=== PATIENT | female | born 1940 | race Caucasian/White ===

== ENCOUNTER 2022-12-16 14:45 | Inpatient (IN) ==
[2022-12-16 17:06] LABS: Hematocrit 26.8 % (35-45); Hemoglobin 8.6 g/dL (11.5-14.3); Mean Corpuscular Hemoglobin 27.3 pg (27-33); Mean Corpuscular Hgb Conc 32.3 g/dL (31-36); Mean Corpuscular Volume 84.5 fL (80-97); Mean Platelet Volume 7.1 fL (7.5-11.2); Platelet Count 470 10^3/uL (150-450); Red Blood Count 3.17 10^6/uL (3.63-4.92); Red Cell Distribution Width 15.9 % (12-17); White Blood Count 13.3 10^3/uL (3.8-11.8)
[2022-12-16 17:12] LABS: INR 1.24 (0.88-1.18)
[2022-12-16 17:22] LABS: Albumin 3.5 g/dL (3.2-5.2); Albumin/Globulin Ratio 1.3 (1-3); C Reactive Protein 92.01 mg/L (<8.01); Calcium 8.7 mg/dL (8.6-10.3); Creatinine, Serum 3.95 mg/dL (0.51-0.95); Globulin 2.7 g/dL (2-4); Magnesium 1.4 mg/dL (1.9-2.7); Phosphorus 4.2 mg/dL (2.5-5.0); Total Bilirubin 0.3 mg/dL (0.2-1.0); Total Protein 6.2 g/dL (6.4-8.9); eGFR CKD-EPI 10.8 (>60)
[2022-12-16 17:40] LABS: ABS Basophils 0.1 10^3/uL (0.0-0.1); ABS Eosinophils 3.3 10^3/uL (0.0-0.5); ABS Lymphocytes 0.8 10^3/uL (1.0-4.8); ABS Monocytes 0.7 10^3/uL (0.0-0.9); ABS Neutrophils 8.4 10^3/uL (1.5-7.6); Eosinophil % 24.6 %; Lymphocyte % 6.2 %
[2022-12-16] MEDS ORDERED: Magnesium Sulf 4 GM/100 ML IV 4,000 MG/100 ML BAG IVPB ONE (17:42)
[2022-12-16] MEDS ORDERED: Bumetanide IV 0.25 MG/ML 4 ml VIAL (1 mg) IV SLOW PU ONE (17:48)
[2022-12-16] MEDS ORDERED: Ondansetron 4 mg VIAL 2 MG/ML 2 ml VIAL IV PRN (18:05)
[2022-12-16 18:38] LABS: High Sensitivity Troponin 1 Hr 8 pg/mL (<15)
[2022-12-16 18:58] LABS: Urine Appearance Cloudy; Urine Bilirubin Negative (Negative); Urine Blood 1+ (Negative); Urine Color Straw; Urine Glucose Negative (Negative); Urine Ketones Negative (Negative); Urine Nitrite Negative (Negative); Urine Protein Negative (Negative); Urine Specific Gravity 1.005 (1.002-1.030); Urine Urobilinogen Negative (Negative)
[2022-12-16] MEDS ORDERED: Heparin DRIP 25,000 UNITS BAG 25,000 UNITS/500 ML BAG IV SCH (19:00)
[2022-12-16 19:11] LABS: Urine Bacteria 1+ (Absent); Urine Red Blood Cell 1+(3-5/hpf) (Absent); Urine Squamous Epithelial Cell Present (Absent); Urine White Blood Cell 3+(>20/hpf) (Absent)
[2022-12-16] MEDS: Heparin 5000 UNITS/ML 1 mL VIAL IV SCH (20:31)
[2022-12-16 21:24] LABS: Creatinine, Serum 3.99 mg/dL (0.51-0.95); eGFR CKD-EPI 10.7 (>60)
[2022-12-16 21:44] LABS: Urine Creatinine Concentration 45.66 mg/dL (20.00-320.00)
[2022-12-17 01:38] LABS: % Iron Saturation 6 % (15-55); .Transferrin 228 mg/dL (203-362); Iron < 20 ug/dL (50-212); Total Iron Binding Capacity 319 mcg/dL (250-450); Unsaturated Iron Binding 299 ug/dL
[2022-12-17 02:46] LABS: Ferritin 41.5 ng/mL (11-307)
[2022-12-17 05:11] LABS: Hematocrit 25.6 % (35-45); Hemoglobin 8.5 g/dL (11.5-14.3); Mean Corpuscular Hemoglobin 27.5 pg (27-33); Mean Corpuscular Hgb Conc 33.1 g/dL (31-36); Mean Corpuscular Volume 83.1 fL (80-97); Mean Platelet Volume 6.9 fL (7.5-11.2); Platelet Count 469 10^3/uL (150-450); Red Blood Count 3.09 10^6/uL (3.63-4.92); Red Cell Distribution Width 15.7 % (12-17); White Blood Count 12.1 10^3/uL (3.8-11.8)
[2022-12-17 05:12] LABS: ABS Basophils 0.1 10^3/uL (0.0-0.1); ABS Eosinophils 3.4 10^3/uL (0.0-0.5); ABS Lymphocytes 0.7 10^3/uL (1.0-4.8); ABS Monocytes 0.5 10^3/uL (0.0-0.9); ABS Neutrophils 7.4 10^3/uL (1.5-7.6); Eosinophil % 28.5 %; Lymphocyte % 5.5 %
[2022-12-17 05:26] LABS: Calcium 8.4 mg/dL (8.6-10.3); Creatinine, Serum 4.06 mg/dL (0.51-0.95); Magnesium 2.6 mg/dL (1.9-2.7); eGFR CKD-EPI 10.5 (>60)
[2022-12-17] MEDS: Heparin 5000 UNITS/ML 1 mL VIAL IV SCH (05:39)
[2022-12-17] MEDS ORDERED: Albuterol HFA INHALER 8 gm MDI INH ONE (06:12)
[2022-12-17] MEDS: CALCIUM CARBONATE VITAMIN D3 PO SCH (08:31)
[2022-12-17] MEDS: NF: Pancrelipase 24,000 units (NF) PO SCH ×3 (08:31→18:42)
[2022-12-17] MEDS: Potassium Chlor 20 meq TAB.ER PO SCH (08:32)
[2022-12-17] MEDS ORDERED: Bumetanide IV 0.25 MG/ML 4 ml VIAL (1 mg) IV SLOW PU ONE (08:51)
[2022-12-17] MEDS: Albuterol HFA INHALER 8 gm MDI INH PRN (13:20)
[2022-12-18] MEDS: Albuterol HFA INHALER 8 gm MDI INH PRN (06:17)
[2022-12-18 06:43] LABS: Hematocrit 25.4 % (35-45); Hemoglobin 8.3 g/dL (11.5-14.3); Mean Corpuscular Hemoglobin 27.4 pg (27-33); Mean Corpuscular Hgb Conc 32.8 g/dL (31-36); Mean Corpuscular Volume 83.5 fL (80-97); Mean Platelet Volume 7.1 fL (7.5-11.2); Platelet Count 470 10^3/uL (150-450); Red Blood Count 3.04 10^6/uL (3.63-4.92); Red Cell Distribution Width 15.7 % (12-17); White Blood Count 11.1 10^3/uL (3.8-11.8)
[2022-12-18 07:03] LABS: Calcium 8.3 mg/dL (8.6-10.3); Creatinine, Serum 4.1 mg/dL (0.51-0.95); Magnesium 2.3 mg/dL (1.9-2.7); Potassium 3.8 mmol/L (3.5-5.0); eGFR CKD-EPI 10.3 (>60)
[2022-12-18 07:04] LABS: ABS Basophils 0.1 10^3/uL (0.0-0.1); ABS Eosinophils 3.9 10^3/uL (0.0-0.5); ABS Lymphocytes 1.3 10^3/uL (1.0-4.8); ABS Monocytes 0.9 10^3/uL (0.0-0.9); ABS Neutrophils 4.9 10^3/uL (1.5-7.6); Eosinophil % 35.3 %; Lymphocyte % 11.6 %
[2022-12-18] MEDS: Bumetanide IV 0.25 MG/ML 4 ml VIAL (1 mg) IV SLOW PU SCH (09:45)
[2022-12-18] MEDS: Potassium Chlor 20 meq TAB.ER PO SCH (09:45)
[2022-12-18] MEDS: NF: Pancrelipase 24,000 units (NF) PO SCH (09:54)
[2022-12-18] MEDS: CALCIUM CARBONATE VITAMIN D3 PO SCH (09:54)
[2022-12-18] MEDS ORDERED: Pancrelipase 24,000 units (NF) PO SCH (11:00)
[2022-12-18] MEDS: Pancrelipase 5,000 units CAP PO SCH ×2 (11:40→16:40)
[2022-12-18 16:54] LABS: Kappa Free Light Chain 7.4 mg/dL; Lambda Free Light Chain, S 4.84 mg/dL
[2022-12-19] MEDS: Albuterol HFA INHALER 8 gm MDI INH PRN (06:03)
[2022-12-19 06:07] LABS: Calcium 8.4 mg/dL (8.6-10.3); Creatinine, Serum 3.81 mg/dL (0.51-0.95); Magnesium 1.8 mg/dL (1.9-2.7); Potassium 3.8 mmol/L (3.5-5.0); eGFR CKD-EPI 11.3 (>60)
[2022-12-19] MEDS ORDERED: Magnesium Sulfate IV 1GM/100ML 1 GM/100 ML BAG IV ONE (08:01)
[2022-12-19] MEDS: Pancrelipase 5,000 units CAP PO SCH ×2 (09:00→11:16)
[2022-12-19] MEDS: Potassium Chlor 20 meq TAB.ER PO SCH (09:02)
[2022-12-19] MEDS: Bumetanide IV 0.25 MG/ML 4 ml VIAL (1 mg) IV SLOW PU SCH (09:02)
[2022-12-19 10:54] VITALS: BP 104/64
[2022-12-19] MEDS: CALCIUM CARBONATE VITAMIN D3 PO SCH (11:14)
[2022-12-19 14:52] LABS: Complement C3 109 mg/dL (75 - 175)
[2022-12-19 18:18] LABS: Proteinase 3 <0.2 U
[2022-12-20 14:09] LABS: C-ANCA Negative (Negative); P-ANCA Negative (Negative)
== END 2022-12-19 14:14 | disposition home or self-care (01) | DRG 683 ==
LOC: ED 14:45 → EDHOLD 18:05 → SUATTDRO 18:05 → MEDTELE 21:46
PROVIDERS: ADMIT Internal Medicine; ATTEND Internal Medicine